=== PATIENT | male | born 1975 | race Caucasian/White ===

== ENCOUNTER 2021-11-01 14:23 | Observation (INO) ==
[2021-11-01] MEDS ORDERED: KETOROLAC 30 MG/1 ML VIAL IV STA (17:36)
[2021-11-01] MEDS ORDERED: ONDANSETRON 4 MG/2 ML VIAL IV ONE (17:36)
[2021-11-01] MEDS ORDERED: SODIUM CHLORIDE 0.9% 1,000 ML IV STA (17:36)
[2021-11-01 17:46] LABS: Basophils % 0.2 % (0.0-0.8); Eosinophils % 0.2 % (0.00-10.9); Hematocrit 44.3 VOL% (42.0-52.0); Hemoglobin 14.5 GM/DL (14.0-18.0); Immature Granulocytes % 0.4 %; Immature Granulocytes Absolute 0.06 #; Lymphocytes # 2.4 10*3/uL (1.4-4.0); Lymphocytes % 14.1 % (21.2-54.2); Mean Corpuscular HGB Conc 32.7 GM/DL (32-36); Mean Platelet Volume 10.1 FL (9.6-12.0); Monocytes # 1.2 10*3/uL (0.11-0.8); Monocytes % 7.3 % (1.7-12.7); Neutrophils % 77.8 % (38.7-73.9); Platelet Count 273 T/CUMM (130-400); Red Blood Count 4.92 MC/CUMM (3.8-5.5); Red Cell Distribution Width 13.5 % (9.3-17.3)
[2021-11-01 18:01] LABS: Albumin 3.6 G/DL (3.4-5.0); Bilirubin,Total 0.4 MG/DL (0.20-1.00); Calcium 9.1 MG/DL (8.5-10.1); Osmolality,Calculated 281.3 MOS/KG (273-304); Potassium 4.3 MMOL/L (3.5-5.1); Total Protein 7.7 G/DL (6.4-8.2)
[2021-11-01] MEDS ORDERED: PIPERACILLIN/TAZOBACTAM 3,375 MG in SODIUM CHLORIDE 0.9% 100 ML IV STA (18:20)
[2021-11-01] MEDS ORDERED: ONDANSETRON 4 MG/2 ML VIAL IV PRN (18:33)
[2021-11-01] MEDS ORDERED: MORPHINE 2 MG/1 ML SYRINGE IV PRN (18:33)
[2021-11-01 19:03] LABS: Glucose,Urine (UA) Negative (Negative); Ketones,Urine Negative (Negative); Mucus,Urine Occasional /LPF (Occasional); Nitrite,Urine Negative (Negative); Protein,Urine Negative (Negative); RBC,Urine <1 /HPF (0-4); Urine Appearance Clear (Clear); Urine Color Yellow (Yellow); Urine Specific Gravity 1.015 (1.001-1.035); Urine pH 5.5 (4.5-8.0)
[2021-11-01 19:04] LABS: Bilirubin,Urine Negative (Negative); Blood, Urine Trace mg/dL (Negative); Urine Urobilinogen 0.2 eU/dL (<2.0)
[2021-11-01] MEDS: DEXTROSE 5% NACL 0.45% 1,000 ML IV SCH (19:50)
[2021-11-02] MEDS: PIPERACILLIN/TAZOBACTAM 3,375 MG in SODIUM CHLORIDE 0.9% 100 ML IV SCH ×3 (02:20→18:35)
[2021-11-02 05:10] LABS: Basophils % 0.2 % (0.0-0.8); Eosinophils # 0.2 10*3/uL (0.0-0.87); Eosinophils % 1.4 % (0.00-10.9); Hematocrit 38.1 VOL% (42.0-52.0); Hemoglobin 12.6 GM/DL (14.0-18.0); Immature Granulocytes % 0.4 %; Immature Granulocytes Absolute 0.05 #; Lymphocytes # 3.5 10*3/uL (1.4-4.0); Lymphocytes % 28.5 % (21.2-54.2); Mean Corpuscular HGB Conc 33.1 GM/DL (32-36); Mean Corpuscular Volume 89.9 FL (87-102); Mean Platelet Volume 10.1 FL (9.6-12.0); Monocytes # 1.1 10*3/uL (0.11-0.8); Neutrophils % 60.5 % (38.7-73.9); Red Blood Count 4.24 MC/CUMM (3.8-5.5); Red Cell Distribution Width 13.5 % (9.3-17.3); White Blood Count 12.4 T/CUMM (4-12)
[2021-11-02 05:11] LABS: Platelet Count 202 T/CUMM (130-400)
[2021-11-02 05:36] LABS: Bilirubin,Total 0.4 MG/DL (0.20-1.00); Calcium 8.6 MG/DL (8.5-10.1); Total Protein 6.1 G/DL (6.4-8.2)
[2021-11-02 05:48] LABS: Osmolality,Calculated 274.7 MOS/KG (273-304); Potassium 3.6 MMOL/L (3.5-5.1)
[2021-11-02] MEDS: DEXTROSE 5% NACL 0.45% 1,000 ML IV SCH (08:48)
[2021-11-02] MEDS ORDERED: PANTOPRAZOLE 40 MG VIAL IV SCH (09:00)
[2021-11-02] MEDS ORDERED: HYDROmorphone 1 MG/1 ML SYRINGE IV PRN ×2 (09:26)
[2021-11-02] MEDS ORDERED: KETOROLAC 15 MG/1 ML VIAL IV PRN (09:26)
[2021-11-02] MEDS ORDERED: ONDANSETRON 4 MG/2 ML VIAL IV PRN (09:37)
[2021-11-02] MEDS ORDERED: TISSUE ADHESIVE 1 EACH APPLICATOR TOP ONE (15:19)
[2021-11-02] MEDS ORDERED: propofoL 200 MG/20 ML VIAL IV ONE (15:48)
[2021-11-02] MEDS ORDERED: fentaNYL 100 MCG/2 ML VIAL ONE (15:48)
[2021-11-02] MEDS ORDERED: KETOROLAC 30 MG/1 ML VIAL ONE (15:48)
[2021-11-02] MEDS ORDERED: SEVOFLURANE 1 UNIT/15 MINUTE INH ONE ×2 (15:48→17:21)
[2021-11-02] MEDS ORDERED: MIDAZOLAM 2 MG/2 ML VIAL ONE (15:48)
[2021-11-02] MEDS ORDERED: ROCURONIUM 50 MG/5 ML VIAL IV ONE (15:48)
[2021-11-02] MEDS ORDERED: ONDANSETRON 4 MG/2 ML VIAL ONE (15:48)
[2021-11-02] MEDS ORDERED: LIDOCAINE 2% 5 ML VIAL ONE (15:48)
[2021-11-02] MEDS ORDERED: DEXAMETHASONE 4 MG/1 ML VIAL ONE (15:48)
[2021-11-02] MEDS ORDERED: PHENYLEPHRINE 1 MG/10 ML SYRINGE IV ONE (16:07)
[2021-11-02] MEDS ORDERED: HYDROmorphone 1 MG/1 ML SYRINGE ONE (17:15)
[2021-11-02] MEDS ORDERED: LACTATED RINGERS 1,000 ML IV ONE (17:21)
[2021-11-02 19:48] VITALS: BP 151/87
== END 2021-11-02 20:08 | disposition home or self-care (01) ==
LOC: N.3E 14:23 → N.ED 14:23 → N.3E 20:02
PROVIDERS: ADMIT Student in an Organized Health Care Education/Training Program; ATTEND Student in an Organized Health Care Education/Training Program
PROC: LAPCHOL (2021-11-02 15:52)